=== PATIENT | male | born 1950 | race Caucasian/White ===

== ENCOUNTER → 2016-05-18 | Outpatient (CLI) | payer MEDICARE ==
[~2016-05-18] MED LIST: CARV12.52 PO; IOHEXOL 300 MG/ML 75 ML VIAL IV ONE; LISI1TAB7 PO
[2016-05-18 10:53] LABS: CREATININE 1.4 mg/dL (0.7-1.3); GFR 50.7
--- NOTE | 2016-05-18 13:18 | RAD ---
CT of the abdomen and pelvis with and without contrast (CT urogram), 05/18/2016: History: Acute right-sided pain Multidetector CT imaging was performed prior to and following an IV bolus injection of iodinated contrast material. Postcontrast scans were obtained through the kidneys in the nephrographic phase and through the entire urinary tract in an excretory phase. 3-D MIP images were reconstructed from the excretory phase data. There is a tiny 2 mm nonobstructing calculus in the lower pole of the left kidney. No right renal calculi are seen. No ureteral or bladder calculus is evident. There is a 13.8 cm right renal cyst. The right kidney is slightly malrotated and displaced anteromedially by this cyst. There is bilateral renal cortical scarring. There is an additional tiny 1 cm low-density lesion in the upper pole the right kidney which is too small to definitively characterize but is probably a cyst. The opacified renal collecting systems and ureters are unremarkable. The bladder demonstrates mild diffuse mural thickening. The prostate gland measures 4 cm in width. Several bibasilar pulmonary nodules are noted. These include a 7 mm noncalcified pulmonary nodule in the right lung base posteriorly as seen on image 36 of series #10. This was not present on a previous CT chest from 05/17/2007. There is a more elongated small parenchymal opacity in the inferior aspect of the right middle lobe as seen on image 25 of series #10 measuring 9-10 mm. This was not present on the previous study. Several small calcified granulomata are seen in both lung bases. There is a 6 mm subpleural nodule in the lateral aspect of the lingula as seen on image 12 of series #10, also not present on the previous study. The unopacified liver is unremarkable. No gallbladder abnormality is seen. The pancreas shows no abnormality. The spleen is of normal size. A small accessory spleen is noted. There is mild aortoiliac calcific plaquing. No abdominal or pelvic adenopathy is seen. Colonic diverticula are present, most numerous in the sigmoid region. The appendix is visualized and shows no abnormality. No free fluid is evident in the abdomen or pelvis. Moderate multilevel degenerative changes are present in the spine. IMPRESSION: 1. Large right renal cyst. 2. Probable tiny cyst in the upper pole of the right kidney. 3. Moderate bilateral renal cortical scarring. 4. Small nonobstructing left intrarenal calculus. 5. Mild diffuse bladder wall thickening may be due to chronic bladder obstruction or cystitis. 6. Bilateral calcified and noncalcified basilar pulmonary nodules, some of which were not present in 2008. Mild these may be on a granulomatous or inflammatory basis, the possibility of metastatic disease should be considered and CT follow-up is suggested. 7. Sigmoid diverticulosis. PQRS Compliance Statement: One or more of the following individualized dose reduction techniques were utilized for this examination: 1. Automated exposure control 2. Adjustment of the mA and/or kV according to patient size 3. Use of iterative reconstruction technique
== END | disposition home or self-care (01) ==
LOC: CT 10:11
PROVIDERS: ATTEND Family Medicine
DX: N28.1 Cyst of kidney, acquired (principal); N20.0 Calculus of kidney; R91.8 Other nonspecific abnormal finding of lung field; K57.30 Diverticulosis of large intestine without perforation or abscess without bleeding
CPT/HCPCS: 36415; 74178; 82565; Q9967

== ENCOUNTER 2016-08-21 06:51 | Outpatient (CLI) | payer MEDICARE ==
[~2016-08-21] VITALS: Ht 170.2 cm; Wt 113.9 kg
[~2016-08-21 06:51] MED LIST changes: -IOHEXOL 300 MG/ML 75 ML VIAL IV ONE
[2016-08-21 07:23] LABS: BASO # 0.1 x10^3/uL (0.0-0.2); BASO % 1 % (0-3); EOS % 7 % (0-3); HEMATOCRIT 45.7 % (39.0-53.0); HEMOGLOBIN 15.3 g/dL (13.0-17.5); LYMPH # 2.1 x10^3/uL (1.0-4.8); LYMPH % 25 % (24-48); MEAN CORPUSCULAR HEMOGLOBIN 30 pg (25-35); MEAN CORPUSCULAR HGB CONC 34 g/dL (31-37); MEAN CORPUSCULAR VOLUME 88 fL (79-100); MONO % 11 % (0-9); NEUT % 56 % (31-73); PLATELET COUNT 170 x10^3/uL (140-400); RED BLOOD COUNT 5.18 x10^6/uL (4.30-5.70); RED CELL DISTRIBUTION WIDTH 14.4 % (11.5-14.5); WHITE BLOOD COUNT 8.4 x10^3/uL (4.0-11.0)
[2016-08-21 07:32] LABS: PROTHROMBIN TIME PATIENT 12.4 SEC (11.7-14.0)
[2016-08-21] MEDS ORDERED: CARV12.5 PO (07:39)
[2016-08-21] MEDS ORDERED: ASPI-482 PO (07:39)
[2016-08-21] MEDS ORDERED: LISI1TAB7 PO (07:39)
[2016-08-21 07:50] VITALS: BP 143/73
[2016-08-21] MEDS ORDERED: MIDAZOLAM HCL/PF 5 MG/5 ML VIAL. ONE (08:42)
[2016-08-21] MEDS ORDERED: LIDOCAINE 1% / SOD BICARB 8.4% 20 ML VIAL. IJ ONE ×2 (08:42→09:30)
[2016-08-21] MEDS ORDERED: fentaNYL PF VIAL 250 MCG/5 ML VIAL ONE (08:42)
[2016-08-21 08:57] VITALS: BP 143/86
[2016-08-21 09:08] VITALS: BP 130/83
[2016-08-21] MEDS ORDERED: fentaNYL PF VIAL 250 MCG/5 ML VIAL IV ONE (09:30)
[2016-08-21] MEDS ORDERED: MIDAZOLAM HCL/PF 5 MG/5 ML VIAL. IV ONE (09:30)
--- NOTE | 2016-08-21 09:31 | PDOC1 ---
History and Physical Date of Procedure Date of Admission 08/21/16 Procedure Procedure Image guided aspiration of large right renal cyst Indication Indication 66 YO male with right flank pain and with very large exophytic right renal cortical cyst, which appears simple and benign by imaging criteria Past Medical History Past Medical History See Nursing Pre Procedure PMH Past Surgical History Past Surgical History See Nursing Pre Procedure PSH Current Medications Current Medications Current Medications Lidocaine/Sodium Bicarbonate (Buffered Lidocaine 1%) 20 ml STK-MED ONCE IJ ; Start 08/21/16 at 08:42; Stop 08/21/16 at 08:43; Status DC Midazolam HCl (Versed) 5 mg STK-MED ONCE .ROUTE ; Start 08/21/16 at 08:42; Stop 08/21/16 at 08:43; Status DC Fentanyl Citrate (Fentanyl 5ml Vial) 250 mcg STK-MED ONCE .ROUTE ; Start at 08:42; Stop 08/21/16 at 08:43; Status DC Lidocaine/Sodium Bicarbonate (Buffered Lidocaine 1%) 20 ml 1X ONCE IJ ; Start 08/21/16 at 09:30; Stop 08/21/16 at 09:31 Midazolam HCl (Versed) 5 mg 1X ONCE IV ; Start 08/21/16 at 09:30; Stop 08/21/16 at 09:31 Fentanyl Citrate (Fentanyl 5ml Vial) 250 mcg 1X ONCE IV ; Start 08/21/16 at 09: 30; Stop 08/21/16 at 09:31 Active Scripts Active Reported Aspir 81 (Aspirin) 81 Mg Tablet.dr 81 Mg PO DAILY Coreg (Carvedilol) 12.5 Mg Tablet 12.5 Mg PO BIDWMEALS Lisinopril-Hctz 20-25 Mg Tab (Lisinopril/Hydrochlorothiazide) 1 Each Tablet 1 Tab PO DAILY Carvedilol 12.5 Mg Tablet 12.5 Mg PO BIDWMEALS Lisinopril-Hctz 20-25 Mg Tab (Lisinopril/Hydrochlorothiazide) 1 Each Tablet 1 Tab PO DAILY Allergies Allergies: Coded Allergies: adhesive tape (Verified Allergy, Intermediate, red rash, 08/21/16) Physical Exam Vital Signs Vital Signs Date Time Temp Pulse Resp B/P (MAP) Pulse Ox O2 Delivery O2 Flow Rate FiO2 08/21/16 09:08 63 16 100 Room Air 08/21/16 07:50 97.9 143/73 (96) 97.9 Lungs: Clear to auscultation Heart: Regular rate Psych/Mental Status: Mental status NL Diagnostic Data/Imaging Images PMC CT abdomen/pelvis from 05/18/16 reviewed Assessment Assessment 66 YO male with right flank pain, possibly related to large 13.5cm x 9cm 11.5cm exophytic right renal cyst, which appears simple and benign by imaging criteria. Problems: Plan Plan Image guided renal cyst aspiration today. If cyst fluid reaccumulates with recurrent pain, then would recommend catheter directed cyst sclerosis. NIRMAL CULP MD Aug 21, 2016 09:31
--- NOTE | 2016-08-21 09:36 | PDOC ---
Exam Chief Projectionist Chief Projectionist Arsalan Mud Jack Operator Mud Jack Operator F Ndumbu Pre-Procedure Diagnosis Pre-Procedure Diagnosis 66 YO male with right flank pain, which may well be related to very large exophytic right renal cortical cyst, which appears simple and benign by imaging criteria. Post-Procedure Diagnosis Post-Procedure Diagnosis Same Procedure Performed Procedure Performed CT guided complete aspiration of right renal cyst. Type of Anesthesia Type of Anesthesia Local only Estimated Blood Loss EBL: Trace Specimens Specimans 740 cc straw-clear cyst fluid removed---samples to lab for culture and cytology. Condition of Patient Condition of Patient Stable. No apparent complication. Disposition Disposition Home from [facility] in 30 minutes, if no problems. F/u with Urologist. If cyst fluid reaccumulates and flank pain recurs, would recommend return for renal cyst catheter directed sclerosis. Full report to follow. NIRMAL CULP MD Aug 21, 2016 09:36
[2016-08-21 09:40] VITALS: BP 140/81
--- NOTE | 2016-08-21 16:26 | RAD ---
CT-guided aspiration of large right renal cortical cyst Indication: 66-year-old male with right flank pain, and with a very large, exophytic right renal cortical cyst, which appears simple and benign by imaging. Image guided aspiration has been requested by urology. Anesthesia: Local only PQRS Compliance Statement: One or more of the following individualized dose reduction techniques was/were utilized for this CT examination or procedure: 1. Automated exposure control. 2. Adjustment of mA and/or kV according to patient size. 3. Iterative reconstruction technique. Procedure: Informed consent was obtained from the patient. He was placed prone on the CT scanner. Preliminary noncontrast CT images confirmed the presence of a large, exophytic, well-defined, thin-walled, homogeneously hypodense, noncalcified benign-appearing simple cyst projecting laterally from right kidney. A right posterior skin site suitable for CT-guided aspiration was selected and marked. That area was prepped and draped in the usual sterile fashion. Using aseptic technique, local anesthesia, and CT guidance, a micropuncture needle was successfully introduced into the thin-walled right renal cyst. The micropuncture needle was exchanged over a microguidewire for a micropuncture sheath, which was, in turn, removed over a 0.035 inch guidewire. The percutaneous tract was dilated and a 6 Bangladeshi drainage catheter was easily introduced. 740 cc of straw-clear cyst fluid was then easily aspirated, samples which were submitted to the clinical laboratory for cytology and for culture. Completion CT images revealed complete collapse of the renal cysts. The drainage catheter was removed and a sterile dressing was applied. Patient tolerated the procedure well without apparent complication. Impression: Successful, uneventful CT-guided aspiration of large right renal cyst, as described. If cyst fluid reaccumulate and there is recurrent right flank pain, catheter directed sclerosis of the cyst could be performed.
--- NOTE | 2016-08-25 16:37 | PATHOLOGY ---
CYTOPATHOLOGY REPORT CLINICAL HISTORY: Right renal cyst. SPECIMEN(S) RECEIVED: A.Needle aspiration, Right renal cyst FINAL DIAGNOSIS: Right renal cyst fine needle aspiration, ThinPrep and cell block: - Cyst contents only. - Macrophages and proteinaceous debris consistent with cyst contents; no epithelial cells are identified. COMMENT: The case is also examined by Dr. Shadi Pride, cytopathologist, who concurs with the diagnosis. PATHOLOGIST: Jeison Colon M.D. REPORT ELECTRONICALLY SIGNED BY: Jeison Colon M.D. DATE/TIME: 08/25/2016 16:35 GROSS PATHOLOGY: A. Needle aspiration, Right renal cyst: The specimen is labeled "Duran Dorman". Twenty mL of dark yellow fluid unfixed from the needle rinse is submitted and one ThinPrep slide and a cell block were prepared from this material. (clt 08.21.2016) COTTON FARMWORKER(S): ANDREAS Holloway([facility]) INITIAL CPT CODE(S): A; 97209, [id number] Professional services performed [place] [email or web address] [address] Technical services performed by [email or web address] at [address] [place] [address], [facility] [address] [address]. PATIENT: DURAN DORMAN /AGE: 104/16/1950 (Age: 66) SEX: M PATIENT #: [id number] ALT CASE #: SPECIMEN COLLECTION DATE: 08/21/2016 SPECIMEN RECEIVED DATE: 08/21/2016 [facility] [address] [place] [address], [address] [place] [address] PHONE: [phone] DIRECTOR: Yakov Ray M.D. * * * END OF REPORT * * *
== END 2016-08-21 09:50 | disposition home or self-care (01) ==
LOC: INTRAD 06:51
PROVIDERS: ATTEND Urology
DX: N28.1 Cyst of kidney, acquired (principal); I11.0 Hypertensive heart disease with heart failure; I50.9 Heart failure, unspecified; I48.91 Unspecified atrial fibrillation; I25.10 Atherosclerotic heart disease of native coronary artery without angina pectoris; Z79.01 Long term (current) use of anticoagulants; Z91.048 Other nonmedicinal substance allergy status
CPT/HCPCS: 10022; 36415; 77012; 85027; 85610; 87071; 87075; 87205; 88173; 88305; A4215; C1729; C1892; C1894; J2250

== ENCOUNTER → 2016-10-02 | Outpatient (CLI) | payer MEDICARE ==
[~2016-10-02] MED LIST changes: +ASPI-482 PO; +CARV12.5 PO; +IOHEXOL 300 MG/ML 100ML VIAL. IV ONE
--- NOTE | 2016-10-02 13:02 | KCIC ---
Examination: CT chest without contrast and CT abdomen and pelvis without and with IV contrast using CT urogram protocol HISTORY: History of pulmonary nodules COMPARISON: None available TECHNIQUE: Axial CT images of the chest was performed without contrast. Coronal and sagittal reformats are performed. Axial CT images of the abdomen pelvis were performed without and with IV contrast using CT urogram protocol. Coronal and sagittal reformats are performed. Exposure: One or more of the following individualized dose reduction techniques were utilized for this examination: 1. Automated exposure control 2. Adjustment of the mA and/or kV according to patient size 3. Use of iterative reconstruction technique FINDINGS: The visualized thyroid gland grossly appears unremarkable. The central airways are patent. There is surgical changes identified in the ascending aorta region. The ascending aortic root measures about 4.1 cm in transverse dimension. Coronary artery calcifications identified Heart size grossly appears unremarkable. Few prominent mediastinal lymph nodes identified with the largest measuring 2.6 cm in the pretracheal region. There is a 3.5 mm solid nodule identified in the right lower lobe of the lung visualized on series 2 image 168. A 4 mm nodule identified in the right lower lobe of the lung visualized on series 2 image 142. A 4 mm pulmonary nodule identified in the left upper lobe of the lung anteriorly visualized on series 2 image 83. There is a 1 cm nodule identified in the left upper lobe of the lung in the lingular region. No evidence of pleural effusion or pneumothorax. Left-sided cardiac pacer is identified. The visualized liver, spleen, adrenals grossly appears unremarkable. The gallbladder is mildly distended. The stomach is mildly distended. The visualized pancreas grossly appears unremarkable. The small bowel is nondilated. Normal-appearing appendix. Feces and gas noted in the colon Multiple sigmoid colon diverticulosis. Urinary bladder is mildly distended. Mildly enlarged prostate gland with central prostatic calcifications No evidence of hydronephrosis The previously visualized large cystic structure in the right kidney is collapsed with residual fluid identified measuring 5.2 x 4.5 cm lateral to the right kidney probably leaking of fluid from the collapsed renal cyst. No evidence of hydronephrosis. The caliber of the aorta grossly appears unremarkable. Moderate degenerative changes lumbar spine. IMPRESSION: 1. Bilateral lung nodules with the largest measuring 1 cm (prior 6 mm) in the left upper lobe of the lung. Recommend follow-up PET CT scan for evaluation of the 1 cm nodule. 2. The previously visualized large cystic structure in the right kidney is collapsed with residual fluid identified measuring 5.2 x 4.5 cm lateral to the right kidney probably leaking of fluid from the collapsed renal cyst. Electronically signed by: Anup Garcia MD (10/02/2016 12:59 PM) [email or web address]
== END | disposition home or self-care (01) ==
LOC: KCIC CT 08:59
PROVIDERS: ATTEND Family Medicine
DX: R91.1 Solitary pulmonary nodule (principal)
CPT/HCPCS: 71250; 74178; 82565; Q9967

== ENCOUNTER → 2017-10-18 | Outpatient (CLI) | payer MEDICARE ==
[2017-10-18 12:27] LABS: BLOOD UREA NITROGEN 24 mg/dL (8-26)
[2017-10-18 12:27] LABS: CREATININE 1.2 mg/dL (0.7-1.3); GFR 60.4
[2017-10-18] MEDS: IOHEXOL 300 MG/ML 100ML VIAL. IV (13:17)
== END | disposition home or self-care (01) ==
LOC: CT 11:38
DX: N28.1 Cyst of kidney, acquired (principal); K86.89 Other specified diseases of pancreas
CPT/HCPCS: 36415; 74178; 82565; 84520